=== PATIENT | male | born 1945 | race Two or more races ===

== ENCOUNTER 2021-08-11 15:10 | Inpatient (IN) | payer OTHER ==
[~2021-08-11] VITALS: Ht 167.6 cm; Wt 58.0 kg
[~2021-08-11 15:10] MED LIST: ASPI-543 PO; CLOP75TA28 PO
[2021-08-11] MEDS ORDERED: cloNIDine HCL 0.1 MG TAB PO ONE (15:45)
[2021-08-11] MEDS ORDERED: ASPirin 81 mg TAB PO ONE (16:00)
[2021-08-11 16:15] LABS: Basophils # (auto) 0 10 ^3/uL (0-0.2); Basophils % (auto) 0.3 % (0.0-2.0); Eosinophils # (auto) 0.5 10 ^3/uL (0-0.8); Eosinophils % (auto) 6.3 % (0.0-7.0); Hematocrit 45.6 % (41.0-53.0); Hemoglobin 14.9 g/dL (13.5-17.5); Lymphocytes % (auto) 25.3 % (10.0-50.0); Mean Corpuscular Hgb Conc. 32.6 g/dL (32.0-36.0); Mean Corpuscular Volume 88.8 fL (80.0-100.0); Monocytes # (auto) 0.8 10 ^3/uL (0-1.3); Monocytes % (auto) 9.5 % (0.0-12.0); Neutrophils # (auto) 4.7 10 ^3/uL (1.6-8.6); Neutrophils % (auto) 58.6 % (37.0-80.0); Red Blood Cells 5.13 10^6/uL (4.5-5.90); Red Cell Distribution Width 13.6 % (11.8-14.3)
[2021-08-11 16:23] LABS: Albumin 3.5 g/dL (3.4-5.0); Anion Gap 1 (5-15); Blood Urea Nitrogen 13 mg/dL (7-18); Calcium 8.7 mg/dL (8.5-10.1); Carbon Dioxide 30 mmol/L (21-32); Chloride 104 mmol/L (98-107); Glucose 105 mg/dL (74-106); Sodium 135 mmol/L (136-145)
[2021-08-11 16:24] LABS: INR 1.17 (0.9-1.15); Partial Thromboplastin Time 30.3 sec (23.6-33.0)
[2021-08-11 16:32] LABS: Alanine Aminotransferase 26 U/L (16-61); Alkaline Phosphatase 97 U/L (45-117); Aspartate Aminotransferase 24 U/L (15-37); BUN/Creatinine Ratio 11.3; Bilirubin, Total 0.4 mg/dL (0.2-1.0); GFR African American 80 mL/min; GFR Non-African American 66 mL/min; Total Protein 7.6 g/dL (6.4-8.2)
[2021-08-11] MEDS ORDERED: NITROGLYCERIN 0.4 MG SL TAB SL ONE (17:30)
[2021-08-11] MEDS ORDERED: NITROGLYCERIN 0.4 MG SL TAB SL PRN ×2 (18:00→19:45)
[2021-08-11] MEDS ORDERED: MORPHINE SULFATE INJECTION 2 MG/ML SYRG IV PRN ×3 (18:00→19:45)
[2021-08-11] MEDS ORDERED: LORazepam 0.5 MG TAB PO PRN (19:45)
[2021-08-11] MEDS ORDERED: ALUM & MAG HYDROX-SIMETH LIQ(MAALOX) 30 ML PO PRN (19:45)
[2021-08-11] MEDS ORDERED: DOCUSATE SOD 100 MG CAP PO PRN (19:45)
[2021-08-11] MEDS ORDERED: LOSARTAN POTASSIUM 50 MG TAB PO ONE (19:45)
[2021-08-11] MEDS ORDERED: METOPROLOL SUCCINATE XL 50 MG TAB PO ONE (19:45)
[2021-08-11] MEDS ORDERED: HYDROcodone-ACET 5/325MG TAB PO PRN (19:45)
[2021-08-11] MEDS ORDERED: ONDANSETRON HCL 4 MG/2 ML VIAL IV PRN (19:45)
[2021-08-11] MEDS ORDERED: ISOSORBIDE MONONITRATE ER 60 MG TAB PO ONE (20:00)
[2021-08-11] MEDS: SOD CHL 0.45% 1,000 ML IV SCH (22:33)
[2021-08-11] MEDS: ATORVASTATIN 20 MG TAB PO SCH (22:34)
[2021-08-12] VITALS (7 sets, daily range): BP systolic 108–140; BP diastolic 63–75
[2021-08-12] MEDS ORDERED: ROSU1TAB15 PO (02:16)
[2021-08-12] MEDS ORDERED: NITR0.4S29 SL (02:18)
[2021-08-12 02:36] LABS: Urine Bacteria NONE SEEN /hpf (None Seen); Urine Blood Negative /uL (Negative); Urine Specific Gravity 1.002 (1.001-1.035); Urine WBC <1 /hpf (0 - 3)
[2021-08-12 02:54] LABS: Alcohol, Urine < 3.0 mg/dL (0-10); Amphetamine Screen, Urine NEGATIVE (NEGATIVE); Barbiturate Scree,Urine NEGATIVE (NEGATIVE); Benzodiazephine Screen, Urine NEGATIVE (NEGATIVE); Cannabinoid Screen, Urine NEGATIVE (NEGATIVE); Cocaine Screen, Urine NEGATIVE (NEGATIVE); Opiate Scree,Urine NEGATIVE (NEGATIVE); Phencyclidine Screen, Urine NEGATIVE (NEGATIVE)
[2021-08-12 05:42] LABS: Basophils # (auto) 0 10 ^3/uL (0-0.2); Basophils % (auto) 0.3 % (0.0-2.0); Eosinophils # (auto) 0.5 10 ^3/uL (0-0.8); Eosinophils % (auto) 6.7 % (0.0-7.0); Hematocrit 39.4 % (41.0-53.0); Hemoglobin 13.7 g/dL (13.5-17.5); Lymphocytes # (auto) 2.1 10 ^3/uL (0.4-5.4); Lymphocytes % (auto) 30.9 % (10.0-50.0); Mean Corpuscular Hemoglobin 30.3 pg (28.0-32.0); Mean Corpuscular Hgb Conc. 34.7 g/dL (32.0-36.0); Mean Corpuscular Volume 87.2 fL (80.0-100.0); Monocytes # (auto) 0.7 10 ^3/uL (0-1.3); Neutrophils # (auto) 3.6 10 ^3/uL (1.6-8.6); Neutrophils % (auto) 52.1 % (37.0-80.0); Red Blood Cells 4.52 10^6/uL (4.5-5.90); Red Cell Distribution Width 13.4 % (11.8-14.3); White Blood Cell 6.8 10^3/uL (4.4-10.8)
[2021-08-12 05:50] LABS: INR 1.11 (0.9-1.15); Partial Thromboplastin Time 29.9 sec (23.6-33.0)
[2021-08-12 05:54] LABS: Alanine Aminotransferase 21 U/L (16-61); Albumin 2.8 g/dL (3.4-5.0); Anion Gap 7 (5-15); Aspartate Aminotransferase 17 U/L (15-37); BUN/Creatinine Ratio 9.6; Blood Urea Nitrogen 11 mg/dL (7-18); Calcium 8.1 mg/dL (8.5-10.1); Carbon Dioxide 29 mmol/L (21-32); Chloride 105 mmol/L (98-107); GFR African American 81 mL/min; GFR Non-African American 67 mL/min; Glucose 82 mg/dL (74-106); Magnesium 2.4 mg/dL (1.6-2.6); Potassium 3.4 mmol/L (3.5-5.1); Sodium 141 mmol/L (136-145)
[2021-08-12 06:00] LABS: Alkaline Phosphatase 78 U/L (45-117); Bilirubin, Total 0.6 mg/dL (0.2-1.0); Phosphorus 3.1 mg/dL (2.5-4.90); Total Protein 6.2 g/dL (6.4-8.2)
[2021-08-12] MEDS: METOPROLOL SUCCINATE XL 50 MG TAB PO SCH (11:35)
[2021-08-12] MEDS: ENOXAPARIN SOD 40 MG/0.4 ML SYRINGE SC SCH (11:35)
[2021-08-12] MEDS: ISOSORBIDE MONONITRATE ER 60 MG TAB PO SCH (11:36)
[2021-08-12] MEDS: LOSARTAN POTASSIUM 50 MG TAB PO SCH (11:37)
[2021-08-12] MEDS: ASPirin 81 mg TAB PO SCH (11:37)
[2021-08-12] MEDS: SOD CHL 0.45% 1,000 ML IV SCH (12:25)
[2021-08-12] MEDS ORDERED: POTASSIUM CHL 20 Meq TABLET PO ONE (17:15)
[2021-08-12] MEDS: ATORVASTATIN 20 MG TAB PO SCH (21:55)
[2021-08-13 05:00] VITALS: BP 129/63
[2021-08-13 09:00] VITALS: BP 140/85
[2021-08-13] MEDS: ASPirin 81 mg TAB PO SCH (09:10)
[2021-08-13] MEDS: ACETAMINOPHEN 325 MG TAB PO PRN ×2 (09:10→21:28)
[2021-08-13] MEDS: ENOXAPARIN SOD 40 MG/0.4 ML SYRINGE SC SCH (09:10)
[2021-08-13] MEDS: METOPROLOL SUCCINATE XL 50 MG TAB PO SCH (09:11)
[2021-08-13] MEDS: LOSARTAN POTASSIUM 50 MG TAB PO SCH (09:11)
[2021-08-13] MEDS: ISOSORBIDE MONONITRATE ER 60 MG TAB PO SCH (09:12)
[2021-08-13 13:00] VITALS: BP 128/62
[2021-08-13 17:00] VITALS: BP 140/65
[2021-08-13] MEDS: ATORVASTATIN 20 MG TAB PO SCH (21:24)
[2021-08-13 22:18] VITALS: BP 147/68
[2021-08-14 06:32] VITALS: BP 153/73
[2021-08-14 07:18] LABS: Basophils # (auto) 0 10 ^3/uL (0-0.2); Basophils % (auto) 0.2 % (0.0-2.0); Eosinophils # (auto) 0.4 10 ^3/uL (0-0.8); Eosinophils % (auto) 4.7 % (0.0-7.0); Hematocrit 43.8 % (41.0-53.0); Lymphocytes # (auto) 2.3 10 ^3/uL (0.4-5.4); Lymphocytes % (auto) 26.5 % (10.0-50.0); Mean Corpuscular Hemoglobin 30.1 pg (28.0-32.0); Mean Corpuscular Hgb Conc. 34.3 g/dL (32.0-36.0); Mean Corpuscular Volume 87.8 fL (80.0-100.0); Monocytes # (auto) 0.8 10 ^3/uL (0-1.3); Monocytes % (auto) 8.8 % (0.0-12.0); Neutrophils # (auto) 5.2 10 ^3/uL (1.6-8.6); Neutrophils % (auto) 59.8 % (37.0-80.0); Nucleated Red Blood Cells % 0.1 %; Red Blood Cells 4.98 10^6/uL (4.5-5.90); Red Cell Distribution Width 13.6 % (11.8-14.3); White Blood Cell 8.7 10^3/uL (4.4-10.8)
[2021-08-14 07:28] LABS: INR 1.1 (0.9-1.15); Partial Thromboplastin Time 30.3 sec (23.6-33.0)
[2021-08-14 07:33] LABS: BUN/Creatinine Ratio 12.7; Calcium 8.9 mg/dL (8.5-10.1); Potassium 3.7 mmol/L (3.5-5.1)
[2021-08-14] MEDS ORDERED: fentaNYL CITRATE 100 MCG/2 ML VL ONE (07:56)
[2021-08-14] MEDS ORDERED: HEPARIN SODIUM (PORCINE) 5000 UNITS/ML 1ML VIAL ONE (07:56)
[2021-08-14] MEDS ORDERED: ANGIOMAX 250 MG VIAL IV ONE (07:56)
[2021-08-14] MEDS ORDERED: VERAPAMIL 2.5MG/ML INJ 2ML VIAL IV ONE (07:56)
[2021-08-14] MEDS ORDERED: MIDAZOLAM HCL 2MG/2ML 2ml VIAL (1mg/ml) ONE (07:57)
[2021-08-14] MEDS ORDERED: SODIUM CHL 0.9% 0 ML ONE (07:57)
[2021-08-14] MEDS ORDERED: LIDOCAINE 2%HCL (LOCAL ANESTH.) INJ 20ML MDV ONE (08:10)
[2021-08-14] MEDS ORDERED: IODIXANOL 320MG/ML 100ML BTL IV ONE (08:10)
[2021-08-14 09:00] VITALS: BP_SYST 138; BP_SYST 153; BP_DIAS 88; BP_DIAS 93
[2021-08-14] MEDS ORDERED: cloNIDine HCL 0.1 MG TAB PO ONE (09:00)
[2021-08-14] MEDS: METOPROLOL SUCCINATE XL 50 MG TAB PO SCH (09:54)
[2021-08-14] MEDS: ASPirin 81 mg TAB PO SCH (09:55)
[2021-08-14] MEDS: ISOSORBIDE MONONITRATE ER 60 MG TAB PO SCH (10:21)
[2021-08-14] MEDS: LOSARTAN POTASSIUM 50 MG TAB PO SCH (10:21)
[2021-08-14 13:00] VITALS: BP 148/85
[2021-08-14] MEDS: ACETAMINOPHEN 325 MG TAB PO PRN (16:28)
[2021-08-14 17:00] VITALS: BP 126/64
== END 2021-08-14 17:15 | disposition home or self-care (01) | DRG 287 ==
LOC: ER 15:10 → EDBD 18:00 → TELE 18:00 → TELE-WESTW 23:59
PROVIDERS: ADMIT Hospitalist; ATTEND Internal Medicine
PROC: 4A023N7 Measurement of Cardiac Sampling and Pressure, Left Heart, Percutaneous Approach (ICD-10-PCS; principal; 2021-08-14)
PROC: B2111ZZ Fluoroscopy of Multiple Coronary Arteries using Low Osmolar Contrast (ICD-10-PCS; 2021-08-14)
PROC: B2151ZZ Fluoroscopy of Left Heart using Low Osmolar Contrast (ICD-10-PCS; 2021-08-14)
DX: I25.118 Atherosclerotic heart disease of native coronary artery with other forms of angina pectoris (principal); I24.9 Acute ischemic heart disease, unspecified; I16.1 Hypertensive emergency; I11.0 Hypertensive heart disease with heart failure; I25.5 Ischemic cardiomyopathy; M72.0 Palmar fascial fibromatosis [Dupuytren]; E78.5 Hyperlipidemia, unspecified; I50.9 Heart failure, unspecified; Z20.822 Contact with and (suspected) exposure to COVID-19; E87.6 Hypokalemia; F17.200 Nicotine dependence, unspecified, uncomplicated; I50.82 Biventricular heart failure; Z79.02 Long term (current) use of antithrombotics/antiplatelets; Z79.899 Other long term (current) drug therapy; Z87.11 Personal history of peptic ulcer disease; Z95.5 Presence of coronary angioplasty implant and graft
CPT/HCPCS: 36415; 71045; 80048; 80053; 80307; 81001; 83036; 83735; 83880; 84100; 84443; 84484; 85025; 85610; 85730; 87040; 87086; 87426; 93005; 93306; 93458; 99152; G0378; J2250; Q9967

== ENCOUNTER 2021-08-30 09:24 | Emergency (ER) | payer OTHER ==
[~2021-08-30] VITALS: Ht 167.6 cm; Wt 59.0 kg
[~2021-08-30 09:24] MED LIST changes: +NITR0.4S29 SL; +ROSU1TAB15 PO
[2021-08-30 11:31] LABS: Basophils # (auto) 0 10 ^3/uL (0-0.2); Basophils % (auto) 0.2 % (0.0-2.0); Eosinophils # (auto) 0.1 10 ^3/uL (0-0.8); Eosinophils % (auto) 1.7 % (0.0-7.0); Hematocrit 41.3 % (41.0-53.0); Hemoglobin 13.7 g/dL (13.5-17.5); Lymphocytes # (auto) 1.2 10 ^3/uL (0.4-5.4); Lymphocytes % (auto) 16.7 % (10.0-50.0); Mean Corpuscular Hemoglobin 29.2 pg (28.0-32.0); Mean Corpuscular Hgb Conc. 33.2 g/dL (32.0-36.0); Mean Corpuscular Volume 87.9 fL (80.0-100.0); Monocytes # (auto) 0.6 10 ^3/uL (0-1.3); Monocytes % (auto) 8.2 % (0.0-12.0); Neutrophils # (auto) 5.4 10 ^3/uL (1.6-8.6); Neutrophils % (auto) 73.2 % (37.0-80.0); Red Cell Distribution Width 13.9 % (11.8-14.3); White Blood Cell 7.3 10^3/uL (4.4-10.8)
[2021-08-30 11:52] LABS: Albumin 3.3 g/dL (3.4-5.0); BUN/Creatinine Ratio 12.2; Calcium 8.9 mg/dL (8.5-10.1)
[2021-08-30 11:56] LABS: Bilirubin, Total 0.5 mg/dL (0.2-1.0)
[2021-08-30 16:20] VITALS: BP 128/79
== END 2021-08-30 16:29 | disposition home or self-care (01) ==
LOC: ER 09:24
DX: I20.9 Angina pectoris, unspecified (principal); I11.0 Hypertensive heart disease with heart failure; I50.9 Heart failure, unspecified; E78.5 Hyperlipidemia, unspecified
CPT/HCPCS: 36415; 71045; 80053; 83880; 84484; 85025; 93005

== ENCOUNTER → 2022-02-28 | Outpatient (CLI) | payer OTHER | END | disposition home or self-care (01) | LOC: XYW 10:56 | PROVIDERS: ATTEND Internal Medicine | DX: I07.1 Rheumatic tricuspid insufficiency (principal); R07.89 Other chest pain | CPT/HCPCS: 93306 ==

== ENCOUNTER → 2022-03-07 | Outpatient (CLI) | payer OTHER ==
[2022-03-07 09:06] LABS: Albumin 3.5 g/dL (3.4-5.0); Calcium 8.9 mg/dL (8.5-10.1); Potassium 3.9 mmol/L (3.5-5.1)
[2022-03-07 09:11] LABS: BUN/Creatinine Ratio 20.5; Bilirubin, Total 0.3 mg/dL (0.2-1.0); Total Protein 7.1 g/dL (6.4-8.2)
== END | disposition home or self-care (01) ==
LOC: LAB 07:56
PROVIDERS: ATTEND Internal Medicine
DX: I10 Essential (primary) hypertension (principal)
CPT/HCPCS: 36415; 80053; 80061; 82274; 82306; 83036; 84443; 85652

== ENCOUNTER 2022-07-03 17:50 | Inpatient (IN) | payer OTHER ==
[~2022-07-03] VITALS: Ht 167.6 cm; Wt 57.8 kg
[2022-07-03 18:54] LABS: Basophils # (auto) 0 10 ^3/uL (0-0.2); Basophils % (auto) 0.5 % (0.0-2.0); Eosinophils # (auto) 0.3 10 ^3/uL (0-0.8); Eosinophils % (auto) 3.8 % (0.0-7.0); Hematocrit 44.8 % (41.0-53.0); Hemoglobin 14.6 g/dL (13.5-17.5); Lymphocytes # (auto) 2.1 10 ^3/uL (0.4-5.4); Mean Corpuscular Hemoglobin 28.6 pg (28.0-32.0); Mean Corpuscular Hgb Conc. 32.6 g/dL (32.0-36.0); Mean Corpuscular Volume 87.8 fL (80.0-100.0); Monocytes # (auto) 0.9 10 ^3/uL (0-1.3); Monocytes % (auto) 10.2 % (0.0-12.0); Neutrophils # (auto) 5.1 10 ^3/uL (1.6-8.6); Neutrophils % (auto) 60.5 % (37.0-80.0); Nucleated Red Blood Cells % 0.1 %; Red Blood Cells 5.11 10^6/uL (4.5-5.90); Red Cell Distribution Width 13.8 % (11.8-14.3); White Blood Cell 8.5 10^3/uL (4.4-10.8)
[2022-07-03] MEDS ORDERED: LABETALOL HCL 5 MG/ML 4ML SYRINGE IV ONE (19:00)
[2022-07-03 19:07] LABS: Albumin 3.8 g/dL (3.4-5.0); CRP High Sensitivity 0.13 mg/dL (< 0.3); Calcium 8.7 mg/dL (8.5-10.1); Potassium 4.3 mmol/L (3.5-5.1)
[2022-07-03 19:10] LABS: Bilirubin, Total 0.6 mg/dL (0.2-1.0); Total Protein 7.2 g/dL (6.4-8.2)
[2022-07-04] MEDS ORDERED: HYDROcodone-ACET 5/325MG TAB ONE (00:18)
[2022-07-04] MEDS ORDERED: HYDROcodone-ACET 5/325MG TAB PO ONE (00:30)
[2022-07-04] MEDS ORDERED: NITROGLYCERIN 0.4 MG SL TAB SL PRN (05:00)
[2022-07-04] MEDS ORDERED: ONDANSETRON HCL 4 MG/2 ML VIAL IV PRN (05:00)
[2022-07-04] MEDS ORDERED: TEMAZEPAM 15 MG CAP PO PRN (05:00)
[2022-07-04] MEDS ORDERED: MORPHINE SULFATE INJ 2 MG/ml SYRG IV PRN (05:00)
[2022-07-04] MEDS ORDERED: ACETAMINOPHEN 325 MG TAB PO PRN (05:00)
[2022-07-04] MEDS: ENOXAPARIN SOD 40 MG/0.4 ML SYRINGE SC SCH (09:53)
[2022-07-04] MEDS: ASPirin 81 mg TAB PO SCH (09:53)
[2022-07-04] MEDS: CLOPIDOGREL BISULFATE 75 MG TAB PO SCH (09:54)
[2022-07-04] MEDS: LOSARTAN POTASSIUM 25 MG TAB PO SCH ×2 (09:54→22:33)
[2022-07-04] MEDS: PANTOPRAZOLE 40 MG TAB PO SCH (09:54)
[2022-07-04] MEDS: ATORVASTATIN 20 MG TAB PO SCH (22:34)
[2022-07-04 22:38] LABS: Urine Amorphous Crystal FEW /hpf (None Seen); Urine Bacteria NONE SEEN /hpf (None Seen); Urine Blood Negative /uL (Negative); Urine Specific Gravity 1.012 (1.001-1.035); Urine WBC <1 /hpf (0 - 3)
[2022-07-04 23:03] VITALS: BP 161/64
[2022-07-04] MEDS ORDERED: CARV6.25 PO (23:38)
[2022-07-05 04:51] VITALS: BP 168/78
[2022-07-05 06:48] LABS: INR 1.06 (0.9-1.15)
[2022-07-05 06:52] LABS: BUN/Creatinine Ratio 16.4; Calcium 8.3 mg/dL (8.5-10.1); Potassium 3.9 mmol/L (3.5-5.1)
[2022-07-05 07:30] VITALS: BP 161/64
[2022-07-05 08:31] LABS: Basophils # (auto) 0 10 ^3/uL (0-0.2); Basophils % (auto) 0.2 % (0.0-2.0); Eosinophils # (auto) 0.3 10 ^3/uL (0-0.8); Eosinophils % (auto) 3.2 % (0.0-7.0); Hematocrit 41.4 % (41.0-53.0); Hemoglobin 13.6 g/dL (13.5-17.5); Lymphocytes # (auto) 1.6 10 ^3/uL (0.4-5.4); Lymphocytes % (auto) 14.8 % (10.0-50.0); Mean Corpuscular Hemoglobin 28.7 pg (28.0-32.0); Mean Corpuscular Hgb Conc. 32.9 g/dL (32.0-36.0); Mean Corpuscular Volume 87.2 fL (80.0-100.0); Monocytes % (auto) 9.4 % (0.0-12.0); Neutrophils # (auto) 7.8 10 ^3/uL (1.6-8.6); Neutrophils % (auto) 72.4 % (37.0-80.0); Red Blood Cells 4.75 10^6/uL (4.5-5.90); Red Cell Distribution Width 13.3 % (11.8-14.3); White Blood Cell 10.8 10^3/uL (4.4-10.8)
[2022-07-05 08:48] VITALS: BP 136/73
[2022-07-05] MEDS: ASPirin 81 mg TAB PO SCH (09:23)
[2022-07-05] MEDS: LOSARTAN POTASSIUM 25 MG TAB PO SCH ×2 (09:23→22:22)
[2022-07-05] MEDS: PANTOPRAZOLE 40 MG TAB PO SCH (09:24)
[2022-07-05] MEDS: CLOPIDOGREL BISULFATE 75 MG TAB PO SCH (09:24)
[2022-07-05] MEDS: ENOXAPARIN SOD 40 MG/0.4 ML SYRINGE SC SCH (09:25)
[2022-07-05] MEDS ORDERED: SODIUM CHL 0.9% 0 ML ONE (11:42)
[2022-07-05] MEDS ORDERED: fentaNYL CITRATE 100 MCG/2 ML VL ONE (11:42)
[2022-07-05] MEDS ORDERED: MIDAZOLAM HCL 2MG/2ML 2ml VIAL (1mg/ml) ONE (11:42)
[2022-07-05] MEDS ORDERED: HEPARIN SODIUM (PORCINE) 5000 UNITS/ML 1ML VIAL ONE (11:42)
[2022-07-05] MEDS ORDERED: ANGIOMAX 250 MG VIAL IV ONE (11:42)
[2022-07-05] MEDS ORDERED: VERAPAMIL 2.5MG/ML INJ 2ML VIAL IV ONE (11:42)
[2022-07-05] MEDS ORDERED: IOHEXOL 350 MG/ML 100ML IJ ONE (11:43)
[2022-07-05] MEDS ORDERED: LIDOCAINE 2%HCL (LOCAL ANESTH.) INJ 20ML MDV ONE (11:43)
[2022-07-05] MEDS ORDERED: hydrALAZINE HCL 20 MG/ML VL ONE (12:16)
[2022-07-05 16:51] VITALS: BP 124/53
[2022-07-05 22:00] VITALS: BP 132/61
[2022-07-05] MEDS: ATORVASTATIN 20 MG TAB PO SCH (22:22)
[2022-07-06 05:57] VITALS: BP 139/70
[2022-07-06 07:30] VITALS: BP 132/61
[2022-07-06] MEDS: ASPirin 81 mg TAB PO SCH (08:28)
[2022-07-06] MEDS: LOSARTAN POTASSIUM 25 MG TAB PO SCH (08:29)
[2022-07-06] MEDS: PANTOPRAZOLE 40 MG TAB PO SCH (08:30)
[2022-07-06] MEDS: CLOPIDOGREL BISULFATE 75 MG TAB PO SCH (08:30)
[2022-07-06] MEDS: ENOXAPARIN SOD 40 MG/0.4 ML SYRINGE SC SCH ×2 (08:30→08:37)
[2022-07-06 09:00] VITALS: BP 143/97
[2022-07-06 12:32] VITALS: BP 143/69
[2022-07-06 13:00] VITALS: BP 159/65
== END 2022-07-06 13:05 | disposition home or self-care (01) | DRG 287 ==
LOC: ER 17:56 → TELE 07-04 04:53 → TELE-EAST 07-04 21:38
PROVIDERS: ADMIT Nurse Practitioner; ATTEND Internal Medicine
PROC: 4A023N7 Measurement of Cardiac Sampling and Pressure, Left Heart, Percutaneous Approach (ICD-10-PCS; principal; 2022-07-05)
PROC: B2111ZZ Fluoroscopy of Multiple Coronary Arteries using Low Osmolar Contrast (ICD-10-PCS; 2022-07-05)
PROC: B2151ZZ Fluoroscopy of Left Heart using Low Osmolar Contrast (ICD-10-PCS; 2022-07-05)
DX: R07.9 Chest pain, unspecified (principal); I11.0 Hypertensive heart disease with heart failure; I16.0 Hypertensive urgency; I50.9 Heart failure, unspecified; E78.5 Hyperlipidemia, unspecified; K21.9 Gastro-esophageal reflux disease without esophagitis; M25.562 Pain in left knee; Z20.822 Contact with and (suspected) exposure to COVID-19
CPT/HCPCS: 36415; 71045; 80048; 80053; 81001; 84439; 84443; 84484; 85025; 85610; 85730; 86141; 86850; 86900; 86901; 93458; 96372; 99152; 99153; G0378; J2250; J3490

== ENCOUNTER → 2023-03-19 | Outpatient (CLI) | payer OTHER ==
[~2023-03-19] MED LIST changes: +CARV6.25 PO
[2023-03-19 09:12] LABS: Basophils # (auto) 0 10 ^3/uL (0-0.2); Basophils % (auto) 0.5 % (0.0-2.0); Eosinophils # (auto) 0.5 10 ^3/uL (0-0.8); Eosinophils % (auto) 5.8 % (0.0-7.0); Hematocrit 45.5 % (41.0-53.0); Hemoglobin 15.2 g/dL (13.5-17.5); Lymphocytes # (auto) 2.4 10 ^3/uL (0.4-5.4); Lymphocytes % (auto) 29.2 % (10.0-50.0); Mean Corpuscular Hemoglobin 29.6 pg (28.0-32.0); Mean Corpuscular Hgb Conc. 33.4 g/dL (32.0-36.0); Mean Corpuscular Volume 88.8 fL (80.0-100.0); Monocytes # (auto) 0.8 10 ^3/uL (0-1.3); Monocytes % (auto) 9.1 % (0.0-12.0); Neutrophils # (auto) 4.6 10 ^3/uL (1.6-8.6); Neutrophils % (auto) 55.4 % (37.0-80.0); Nucleated Red Blood Cells % 0.1 %; Red Blood Cells 5.13 10^6/uL (4.5-5.90); Red Cell Distribution Width 14.3 % (11.8-14.3); White Blood Cell 8.3 10^3/uL (4.4-10.8)
[2023-03-19 09:13] LABS: Urine Bacteria NONE SEEN /hpf (None Seen); Urine Blood Negative /uL (Negative); Urine WBC <1 /hpf (0 - 3)
[2023-03-19 09:49] LABS: Albumin 3.7 g/dL (3.4-5.0); Potassium 3.9 mmol/L (3.5-5.1)
[2023-03-19 09:55] LABS: BUN/Creatinine Ratio 14.8 (10.0-20.0); Bilirubin, Total 0.7 mg/dL (0.2-1.0); Total Protein 7.5 g/dL (6.4-8.2)
[2023-03-19 09:56] LABS: Carcinoembryonic Antigen 1.54 ng/mL (<5.0 OR =); Free T4 (Free Thyroxine) 1.06 ng/dL (0.89-1.76)
== END | disposition home or self-care (01) ==
LOC: LAB 08:36
PROVIDERS: ATTEND Internal Medicine
DX: I25.10 Atherosclerotic heart disease of native coronary artery without angina pectoris (principal)
CPT/HCPCS: 36415; 80053; 80061; 81001; 82306; 82378; 84439; 84443; 85025; 86301

== ENCOUNTER → 2023-03-26 | Outpatient (CLI) | payer OTHER ==
[2023-03-26 16:27] LABS: BUN/Creatinine Ratio 18.5 (10.0-20.0); Calcium 8.8 mg/dL (8.5-10.1); Potassium 4.1 mmol/L (3.5-5.1)
== END | disposition home or self-care (01) ==
LOC: LAB 15:46
PROVIDERS: ATTEND Internal Medicine
DX: I10 Essential (primary) hypertension (principal)
CPT/HCPCS: 36415; 80048; 82105; 84153

== ENCOUNTER → 2023-06-19 | Outpatient (CLI) | payer OTHER ==
[2023-06-19 11:02] LABS: Anion Gap 4.8 (5-15); Carbon Dioxide 29.2 mmol/L (20-30); Chloride 105 mmol/L (98-107); Potassium 4.6 mmol/L (3.5-5.1); Sodium 139 mmol/L (136-145)
[2023-06-19 11:03] LABS: Calcium 9.5 mg/dL (8.5-10.1)
[2023-06-19 11:08] LABS: BUN/Creatinine Ratio 8.9 (10.0-20.0); Blood Urea Nitrogen 12 mg/dL (9-23); Glucose 84 mg/dL (74-106)
== END | disposition home or self-care (01) ==
LOC: LAB 09:15
PROVIDERS: ATTEND Internal Medicine
DX: I10 Essential (primary) hypertension (principal)
CPT/HCPCS: 36415; 80048

== ENCOUNTER → 2023-07-11 | Day surgery (SDC) | payer OTHER ==
[~2023-07-11] VITALS: Ht 167.6 cm; Wt 57.2 kg
[~2023-07-11] MED LIST changes: +ATOR20TA PO; +FLUMAZENIL 0.1 MG/ML INJ 10ML MDV IV ONE; +ISOS60TA24 PO; +LOSA50TA46 PO; +MIDAZOLAM HCL 5 MG/ML-1ML VIAL ONE; +NALOXONE HCL 0.4 MG/ML VIAL ONE; -ROSU1TAB15 PO; +SODIUM CHLORIDE LOCK 10 ML ONE
[2023-07-11 11:19] LABS: Basophils # (auto) 0 10 ^3/uL (0-0.2); Basophils % (auto) 0.3 % (0.0-2.0); Eosinophils # (auto) 0.5 10 ^3/uL (0-0.8); Eosinophils % (auto) 5.6 % (0.0-7.0); Hematocrit 41.9 % (41.0-53.0); Hemoglobin 14.2 g/dL (13.5-17.5); Lymphocytes # (auto) 2.1 10 ^3/uL (0.4-5.4); Mean Corpuscular Hemoglobin 30.1 pg (28.0-32.0); Mean Corpuscular Hgb Conc. 33.9 g/dL (32.0-36.0); Monocytes # (auto) 0.7 10 ^3/uL (0-1.3); Monocytes % (auto) 8.1 % (0.0-12.0); Neutrophils # (auto) 5.5 10 ^3/uL (1.6-8.6); Red Blood Cells 4.71 10^6/uL (4.5-5.90); Red Cell Distribution Width 13.1 % (11.8-14.3); White Blood Cell 8.9 10^3/uL (4.4-10.8)
[2023-07-11 11:46] LABS: INR 1.08 (0.9-1.15); Partial Thromboplastin Time 29.8 SEC (24.5-34.5); Prothrombin Time 11.3 sec (9.3-11.8)
[2023-07-11 11:54] LABS: Alanine Aminotransferase 17 U/L (7-40); Alkaline Phosphatase 90 U/L (46-116); Aspartate Aminotransferase 18 U/L (13-40); BUN/Creatinine Ratio 10.2 (10.0-20.0); Blood Urea Nitrogen 14 mg/dL (9-23); Calcium 9.5 mg/dL (8.5-10.1); Carbon Dioxide 32 mmol/L (20-30); Glucose 92 mg/dL (74-106)
[2023-07-11 11:55] LABS: Bilirubin, Total 1.3 mg/dL (0.2-1.0); Total Protein 6.8 g/dL (5.7-8.2)
[2023-07-11 12:25] LABS: Anion Gap 7 (5-15); Chloride 101 mmol/L (98-107); Sodium 140 mmol/L (136-145)
[2023-07-11] MEDS: fentaNYL CITRATE 100 MCG/2 ML VL ONE ×2 (13:11→13:18)
[2023-07-11] MEDS: diphenhdrAMINE HCL 50 MG/1 ML VL ONE ×2 (13:11→13:18)
[2023-07-11 13:45] VITALS: TEMP 97.7; O2SAT 100
[2023-07-11 14:23] VITALS: BP 147/79; PULSE 59; RESP 16; O2SAT 97
== END | disposition home or self-care (01) ==
LOC: GI 12:22
PROVIDERS: ATTEND Internal Medicine Gastroenterology
DX: R19.5 Other fecal abnormalities (principal); K64.8 Other hemorrhoids; Q43.8 Other specified congenital malformations of intestine; K63.5 Polyp of colon; Z79.899 Other long term (current) drug therapy; I10 Essential (primary) hypertension; Z98.890 Other specified postprocedural states
CPT/HCPCS: 36415; 45385; 80053; 85025; 85610; 85730; J1200; J2250; J3010; 99152; 99153

== ENCOUNTER → 2024-05-07 | Outpatient (CLI) | payer OTHER ==
[~2024-05-07] MED LIST changes: -CARV6.25 PO; +CARV6.2517 PO; -FLUMAZENIL 0.1 MG/ML INJ 10ML MDV IV ONE; +ISOS1TAB29 PO; -ISOS60TA24 PO; +LOSA-534 PO; -LOSA50TA46 PO; -MIDAZOLAM HCL 5 MG/ML-1ML VIAL ONE; -NALOXONE HCL 0.4 MG/ML VIAL ONE; -SODIUM CHLORIDE LOCK 10 ML ONE
[2024-05-07 07:10] LABS: Urine Bacteria None Seen /hpf (None Seen)
[2024-05-07 07:30] LABS: Basophils # (auto) 0 10 ^3/uL (0-0.2); Basophils % (auto) 0.3 % (0.0-2.0); Eosinophils # (auto) 0.5 10 ^3/uL (0-0.8); Eosinophils % (auto) 5.3 % (0.0-7.0); Hemoglobin 14.5 g/dL (13.5-17.5); Lymphocytes # (auto) 2.8 10 ^3/uL (0.4-5.4); Lymphocytes % (auto) 31.1 % (10.0-50.0); Mean Corpuscular Hemoglobin 30.2 pg (28.0-32.0); Mean Corpuscular Hgb Conc. 33.7 g/dL (32.0-36.0); Mean Corpuscular Volume 89.5 fL (80.0-100.0); Monocytes # (auto) 0.8 10 ^3/uL (0-1.3); Monocytes % (auto) 9.3 % (0.0-12.0); Neutrophils # (auto) 4.9 10 ^3/uL (1.6-8.6); Nucleated Red Blood Cells % 0.2 %; Red Cell Distribution Width 13.6 % (11.8-14.3)
[2024-05-07 07:36] LABS: Prostate Specific Antigen 1.7 ng/mL (0.0-4.0)
[2024-05-07 07:37] LABS: Alanine Aminotransferase 17 U/L (7-40); Albumin 4.2 g/dL (3.2-4.8); Alkaline Phosphatase 100 U/L (46-116); Anion Gap 4 (5-15); Aspartate Aminotransferase 16 U/L (13-40); BUN/Creatinine Ratio 12.2 (10.0-20.0); Blood Urea Nitrogen 15 mg/dL (9-23); Calcium 9.5 mg/dL (8.7-10.4); Carbon Dioxide 30 mmol/L (20-30); Chloride 106 mmol/L (98-107); Cholesterol 129 mg/dL (< 200); Glucose 90 mg/dL (74-106); HDL Cholesterol 36 mg/dL (40-59); LDL Cholesterol 82 mg/dL (< 100); Potassium 3.9 mmol/L (3.5-5.1); Sodium 140 mmol/L (136-145); Triglycerides 98 mg/dL (< 150)
[2024-05-07 07:38] LABS: Bilirubin, Total 0.4 mg/dL (0.2-1.0); Total Protein 6.6 g/dL (5.7-8.2)
[2024-05-07 08:16] LABS: Urine Blood Negative /uL (Negative); Urine Clarity Clear (Clear); Urine Color Colorless (Yellow); Urine Protein, UAD Negative (Negative); Urine Specific Gravity 1.011 (1.001-1.035); Urine Urobilinogen Normal (Negative); Urine WBC 1 /hpf (0 - 3); Urine pH 7.5 (5.0-9.0)
== END | disposition home or self-care (01) ==
LOC: LAB 06:50
PROVIDERS: ATTEND Internal Medicine
DX: N40.1 Benign prostatic hyperplasia with lower urinary tract symptoms (principal)
CPT/HCPCS: 36415; 80053; 80061; 81001; 82306; 82607; 83036; 84153; 84443; 85025

== ENCOUNTER 2024-08-11 04:32 | Emergency (ER) | payer OTHER ==
[~2024-08-11] VITALS: Ht 167.6 cm; Wt 59.3 kg
[2024-08-11 06:54] LABS: Basophils # (auto) 0 10 ^3/uL (0-0.2); Basophils % (auto) 0.2 % (0.0-2.0); Eosinophils # (auto) 0.5 10 ^3/uL (0-0.8); Eosinophils % (auto) 5.1 % (0.0-7.0); Hematocrit 37.5 % (41.0-53.0); Hemoglobin 13.1 g/dL (13.5-17.5); Lymphocytes # (auto) 1.5 10 ^3/uL (0.4-5.4); Lymphocytes % (auto) 16.2 % (10.0-50.0); Mean Corpuscular Hemoglobin 31.1 pg (28.0-32.0); Monocytes % (auto) 10.8 % (0.0-12.0); Neutrophils # (auto) 6.4 10 ^3/uL (1.6-8.6); Neutrophils % (auto) 67.7 % (37.0-80.0); Platelet Count (auto) 182 10^3/uL (140-450); Red Blood Cells 4.22 10^6/uL (4.5-5.90); Red Cell Distribution Width 13.8 % (11.8-14.3); White Blood Cell 9.4 10^3/uL (4.4-10.8)
[2024-08-11 07:11] LABS: Alanine Aminotransferase 17 U/L (7-40); Alkaline Phosphatase 81 U/L (46-116); Anion Gap 3 (5-15); Aspartate Aminotransferase 18 U/L (13-40); Bilirubin, Total 0.8 mg/dL (0.2-1.0); Blood Urea Nitrogen 17 mg/dL (9-23); Calcium 9.5 mg/dL (8.7-10.4); Carbon Dioxide 30 mmol/L (20-31); Chloride 107 mmol/L (98-107); Glucose 91 mg/dL (74-106); Sodium 140 mmol/L (136-145); Total Protein 6.3 g/dL (5.7-8.2)
[2024-08-11 08:00] VITALS: O2SAT 95
[2024-08-11] MEDS: ACETAMINOPHEN 325 MG TAB PO ONE (08:08)
[2024-08-11] MEDS: METOCLOPRAMIDE HCL 5MG/ml INJ 2ml VIAL IV ONE (08:09)
[2024-08-11 08:49] LABS: INR 1.05 (0.9-1.15); Partial Thromboplastin Time 27.9 SEC (24.5-34.5); Prothrombin Time 11.1 sec (9.3-11.8)
[2024-08-11 11:06] VITALS: BP 124/66; PULSE 69; RESP 16; TEMP 97.6; O2SAT 96
== END 2024-08-11 11:10 | disposition short-term general hospital (02) ==
LOC: EDBD 04:32 → ER 04:32
DX: I61.8 Other nontraumatic intracerebral hemorrhage (principal); I11.0 Hypertensive heart disease with heart failure; I50.89 Other heart failure; K21.9 Gastro-esophageal reflux disease without esophagitis; E78.5 Hyperlipidemia, unspecified; Z79.899 Other long term (current) drug therapy; Z86.73 Personal history of transient ischemic attack (TIA), and cerebral infarction without residual deficits; Z98.890 Other specified postprocedural states
CPT/HCPCS: 36415; 70450; 71045; 80053; 83880; 84484; 85025; 85610; 85730; 93005; 96374; 99291; J2765